=== PATIENT | female | born 1980 | race Caucasian/White ===

== ENCOUNTER 2020-02-04 08:30 | Emergency (ER) | payer OTHER ==
--- NOTE | 2020-02-04 09:11 | ER Document Report ---
HPI - HPI Time Seen by Provider: 02/04/20 09:05 Pain Level: 5 Context: Patient is a 39-year-old female presents emergency department with a chief complaint of left proximal lower leg pain. Around 230 yesterday, the patient jumped down from a tailgate and ended up having pain to her left knee area. Denies any pain at her ankle or foot. States that she landed on her feet when she jumped down. She has been taking extra strength Excedrin for the pain. States that she is unable to bear weight. States that her foot also felt cold yesterday. Denies any shortness of breath or difficulty breathing. - ROS Systems Reviewed and Negative: Yes All other systems reviewed and negative - CONSTITUTIONAL Constitutional: DENIES: Fever, Chills - NEURO Neurology: DENIES: Headache - RESPIRATORY Respiratory: DENIES: Trouble Breathing, Coughing - REPRODUCTIVE LMP: n/a Reproductive: DENIES: : - MUSCULOSKELETAL Musculoskeletal: REPORTS: Extremity pain - left knee - DERM Skin Color: Normal Skin Problems: None Past Medical History - General Information source: Patient - Social History Smoking Status: Never Smoker Chew tobacco use (# tins/day): No Frequency of alcohol use: None Drug Abuse: None Family History: Reviewed & Not Pertinent Psychiatric Medical History: Reports: Hx Depression - anxiety Past Surgical History: Reports: Hx Section Vertical Provider Document - CONSTITUTIONAL Agree With Documented VS: Yes Exam Limitations: No Limitations General Appearance: No Apparent Distress - HEENT HEENT: Atraumatic, Normocephalic, PERRLA - NECK Neck: Normal Inspection - RESPIRATORY Respiratory: Breath Sounds Normal, No Respiratory Distress - CARDIOVASCULAR Cardiovascular: Regular Rate, Regular Rhythm Pulses: Normal: Posterior tibial, Dorsalis pedis - GI/ABDOMEN Gastrointestinal: Abdomen Soft, Abdomen Non-Tender - NEURO Level of Consciousness: Awake, Alert, Appropriate Motor/Sensory: No Motor Deficit, No Sensory Deficit - DERM Integumentary: Warm, Dry, No Rash Course - Re-evaluation Re-evalutation: 02/04/20 09:59 There is a fracture at the tibial plateau. Will place the patient in a long leg posterior splint. Capillary refill less than 3 seconds. Dorsalis pedis and posterior tibial pulses 2+. No vascular compromise noted. Patient will follow up with orthopedics in regards to this visit. Follow-up precautions were given. Verbal discharge instructions were given to the patient. They verbalized understanding. They are stable for discharge. - Vital Signs Vital signs: Temp Pulse Resp BP Pulse Ox 98.0 F 97 14 110/60 95 02/04/20 08:36 02/04/20 08:36 02/04/20 08:36 02/04/20 08:36 02/04/20 08:36 Procedures - Immobilization Left Leg Pre-Proc Neuro Vasc Exam: Normal Immobilizer type: Long leg posterior Performed by: PCT Post-Proc Neuro Vasc Exam: Normal, Unchanged from pre-exam Alignment checked and good: Yes Discharge - Discharge Clinical Impression: Tibial plateau fracture, left Qualifiers: Encounter type: initial encounter Fracture type: closed Qualified Code(s): S82.142A - Displaced bicondylar fracture of left tibia, initial encounter for closed fracture Condition: Stable Disposition: HOME, SELF-CARE Instructions: Use of Crutches ([facility]), Fracture ([facility]) Additional Instructions: You were seen today in emergency department for left leg pain. You have a fracture one of your bones in your leg called the tibia. You were placed in a splint. Do not get the splint wet. Please follow-up with orthopedics in regards to this visit. Call today to make an appointment. Use your crutches to get around. Take ibuprofen 600 mg every 6 hours. You can also take acetaminophen 1000 mg every 6 hours. If you take the [place], only take 650 mg of acetaminophen. Prescriptions: Hydrocodone/Acetaminophen [[place] 5-325 mg Tablet] 1 tab PO ASDIR PRN #12 tablet PRN Reason: Forms: Special Work Note Referrals: MONICA HYDE MD [ACTIVE STAFF] - Follow up in 3-5 days
--- NOTE | 2020-02-04 09:51 | RADIOLOGY REPORT (SQ) ---
EXAM DESCRIPTION: KNEE LEFT 4 VIEW IMAGES COMPLETED DATE/TIME: 02/04/2020 9:22 am REASON FOR STUDY: acute knee pain, swelling, unable to weight bear COMPARISON: None. NUMBER OF VIEWS: Four views. TECHNIQUE: AP, lateral, and both oblique radiographic images acquired of the left knee. LIMITATIONS: None. FINDINGS: MINERALIZATION: Normal. BONES: Comminuted minimally depressed fracture of the tibial plateau. JOINT: Joint effusion. SOFT TISSUES: No foreign body. OTHER: No other significant finding. IMPRESSION: Fracture tibial plateau. TECHNICAL DOCUMENTATION: JOB ID: [id number] [employer]- All Rights Reserved Reading location - IP/workstation name: [email or web address]
[2020-02-04 11:05] VITALS: BP 121/76
== END 2020-02-04 11:04 | disposition home or self-care (01) ==
LOC: ER 08:30
DX: S82.142A Displaced bicondylar fracture of left tibia, initial encounter for closed fracture (principal); X58.XXXA Exposure to other specified factors, initial encounter
CPT/HCPCS: 99283

== ENCOUNTER → 2020-02-05 | Outpatient (CLI) | payer OTHER ==
--- NOTE | 2020-02-05 10:10 | RADIOLOGY REPORT (SQ) ---
EXAM DESCRIPTION: CT LT LOWER EXTREMITY WITHOUT IMAGES COMPLETED DATE/TIME: 02/05/2020 9:39 am REASON FOR STUDY: S82.109A UNSP FRACTURE OF UPPER END OF UNSP TIBIA, INIT FOR CLOS FX S82.109A UNSP FRACTURE OF UPPER END OF UNSP TIBIA, INIT FOR COMPARISON: None. TECHNIQUE: Axial imaging performed through the left knee with reformatted coronal and sagittal imagi ng windowed for bone and soft tissues. Images saved to PACS. 3D IMAGING: Were 3D images as MIP, SSD, or volume rendering performed at the work station? No. All CT scanners at this facility use dose modulation, iterative reconstruction, and/or weight based d osing when appropriate to reduce radiation dose to as low as reasonably achievable (ALARA). [facility]: Dose Right [facility]: CareDose [facility]: Dose Right [facility]: Teradose 4D [facility]: InRadio LIMITATIONS: None. RADIATION DOSE: CT Rad equipment meets quality standard of care and radiation dose reduction techniq ues were employed. CTDIvol: 5.0 mGy. DLP: 164 mGy-cm. mGy. FINDINGS: SOFT TISSUES: No obvious swelling or foreign body. BONES: Comminuted fracture of the tibial plateau this involves both the medial and lateral aspect of the tibia. This is best demonstrated on the sagittal reconstructions. Tibial spines are essentially free-floating with 4-5 mm of separation between the fracture fragments. MINERALIZATION: Normal. OTHER: Small joint effusion. IMPRESSION: Comminuted fracture of the tibial plateau as described. No significant depression at th is time. TECHNICAL DOCUMENTATION: JOB ID: [id number] Quality ID # [id number]: Final reports with documentation of one or more dose reduction techniques (e.g., Au tomated exposure control, adjustment of the mA and/or kV according to patient size, use of iterative reconstruction technique) 2010 [employer]- All Rights Reserved Reading location - IP/workstation name: [email or web address]
== END ==
LOC: RAD 08:57
PROVIDERS: ATTEND Orthopaedic Surgery
DX: S82.142A Displaced bicondylar fracture of left tibia, initial encounter for closed fracture (principal); X58.XXXA Exposure to other specified factors, initial encounter